=== PATIENT | female | born 1995 | race Caucasian/White ===

== ENCOUNTER 2019-09-21 12:06 | Emergency (ER) | payer OTHER, BC ==
[2019-09-21 12:12] VITALS: BP 119/75
[2019-09-21] MEDS ORDERED: IBUPROFEN 800 MG TABLET PO ONE (12:19)
[2019-09-21] MEDS ORDERED: CYCLOBENZAPRINE HCL 10 MG TABLET PO ONE (12:19)
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
== END 2019-09-21 13:52 | disposition home or self-care (01) ==
LOC: ER 12:06
DX: S60.811A Abrasion of right wrist, initial encounter (principal); M54.6 Pain in thoracic spine; M79.10 Myalgia, unspecified site; V43.53XA Car driver injured in collision with pick-up truck in traffic accident, initial encounter
CPT/HCPCS: 72070; 99283

== ENCOUNTER → 2019-10-03 | Outpatient (CLI) | payer BC ==
--- NOTE | 2019-10-03 14:35 | RADIOLOGY REPORT (SQ) ---
EXAM DESCRIPTION: WRIST RIGHT 3 VIEWS IMAGES COMPLETED DATE/TIME: 10/03/2019 2:19 pm REASON FOR STUDY: M25.531 PAIN IN RIGHT WRIST M25.531 PAIN IN RIGHT WRIST M25.511 PAIN IN RIGHT SH OULDER M25.551 PAIN IN RIGHT HIP COMPARISON: None. NUMBER OF VIEWS: Three views. TECHNIQUE: AP, lateral, and oblique radiographic images acquired of the right wrist. LIMITATIONS: None. FINDINGS: MINERALIZATION: Normal. BONES: No acute fracture or dislocation. No worrisome bone lesions. Normal alignment. SOFT TISSUES: No soft tissue swelling. No foreign body. OTHER: No other significant finding. IMPRESSION: NEGATIVE STUDY OF THE RIGHT WRIST. NO RADIOGRAPHIC EVIDENCE OF ACUTE INJURY. TECHNICAL DOCUMENTATION: JOB ID: [id number] 2010 [employer]- All Rights Reserved Reading location - IP/workstation name: [email or web address]
--- NOTE | 2019-10-03 14:44 | RADIOLOGY REPORT (SQ) ---
EXAM DESCRIPTION: SHOULDER RIGHT 2 OR MORE VIEWS IMAGES COMPLETED DATE/TIME: 10/03/2019 2:19 pm REASON FOR STUDY: M25.511 PAIN IN RIGHT SHOULDER M25.531 PAIN IN RIGHT WRIST M25.511 PAIN IN RIGHT SHOULDER M25.551 PAIN IN RIGHT HIP COMPARISON: None. NUMBER OF VIEWS: Three views. TECHNIQUE: Internal rotation, external rotation, and Y view images acquired of the right shoulder. LIMITATIONS: None. FINDINGS: MINERALIZATION: Normal. BONES: No acute fracture. No worrisome bone lesions. JOINTS: No dislocation. VISUALIZED LUNGS AND RIBS: No pneumothorax. No rib fracture. SOFT TISSUES: No radiopaque foreign body. OTHER: No other significant finding. IMPRESSION: NEGATIVE STUDY OF THE RIGHT SHOULDER. NO RADIOGRAPHIC EVIDENCE OF ACUTE INJURY. TECHNICAL DOCUMENTATION: JOB ID: [id number] 2010 [employer]- All Rights Reserved Reading location - IP/workstation name: [email or web address]
--- NOTE | 2019-10-03 14:58 | RADIOLOGY REPORT (SQ) ---
EXAM DESCRIPTION: HIP RIGHT AP/LATERAL IMAGES COMPLETED DATE/TIME: 10/03/2019 2:19 pm REASON FOR STUDY: M25.551 PAIN IN RIGHT HIP M25.531 PAIN IN RIGHT WRIST M25.511 PAIN IN RIGHT SHOU LDER M25.551 PAIN IN RIGHT HIP COMPARISON: None. NUMBER OF VIEWS: Two views. TECHNIQUE: AP pelvis and additional frog-leg view of the right hip. LIMITATIONS: None. FINDINGS: MINERALIZATION: Normal. RIGHT HIP: No fracture or dislocation. No worrisome bone lesions. No contour deformity. No joint sp claire narrowing. LEFT HIP: No fracture or dislocation. No worrisome bone lesions. PUBIS AND ISCHIUM: No fracture. PELVIS: No fracture. SACRUM: No fracture or dislocation. No worrisome bone lesions. LOWER LUMBAR SPINE: No fracture or dislocation. No worrisome bone lesions. No significant disc disea se. SOFT TISSUES: No findings. OTHER: No other significant finding. IMPRESSION: NEGATIVE STUDY OF THE RIGHT HIP. NO EXPLANATION FOR PAIN. TECHNICAL DOCUMENTATION: JOB ID: [id number] [employer]- All Rights Reserved Reading location - IP/workstation name: [email or web address]
== END ==
LOC: RAD 13:24
PROVIDERS: ATTEND Family Medicine
DX: M25.531 Pain in right wrist (principal); M25.511 Pain in right shoulder; M25.551 Pain in right hip

== ENCOUNTER → 2019-10-26 | Outpatient (CLI) | payer BC ==
--- NOTE | 2019-10-26 10:45 | RADIOLOGY REPORT (SQ) ---
EXAM DESCRIPTION: KNEE RIGHT 3 VIEWS IMAGES COMPLETED DATE/TIME: 10/26/2019 9:38 am REASON FOR STUDY: S89.91XA UNSPECIFIED INJURY OF RIGHT LOWER LEG, INITIAL ENCOUNTER S89.91XA UNSPEC IFIED INJURY OF RIGHT LOWER LEG, INITIAL ENCO COMPARISON: None. NUMBER OF VIEWS: Four views. TECHNIQUE: AP, lateral, oblique, and sunrise patella radiographic images acquired of the right knee. LIMITATIONS: None. FINDINGS: MINERALIZATION: Normal. BONES: No acute fracture or dislocation. JOINT: No effusion. SOFT TISSUES: No soft tissue swelling or radiopaque foreign body. OTHER: No other finding. IMPRESSION: No acute osseous abnormality of the right knee. TECHNICAL DOCUMENTATION: JOB ID: [id number] 2010 [employer]- All Rights Reserved Reading location - IP/workstation name: [email or web address]
== END ==
LOC: RAD 08:59
PROVIDERS: ATTEND Family Medicine
DX: S89.91XA Unspecified injury of right lower leg, initial encounter (principal); X58.XXXA Exposure to other specified factors, initial encounter

== ENCOUNTER → 2020-03-26 | Outpatient (CLI) | payer BC ==
--- NOTE | 2020-03-26 11:34 | RADIOLOGY REPORT (SQ) ---
EXAM DESCRIPTION: HIP RIGHT AP/LATERAL IMAGES COMPLETED DATE/TIME: 03/26/2020 11:07 am REASON FOR STUDY: R HIP PAIN M25.551 PAIN IN RIGHT HIP COMPARISON: 10/03/2019 NUMBER OF VIEWS: Two views. TECHNIQUE: AP and frog-leg view of the right hip. LIMITATIONS: None. FINDINGS: MINERALIZATION: Normal. RIGHT HIP: No fracture or dislocation. No worrisome bone lesions. No contour deformity. No joint sp claire narrowing. OPPOSITE HIP: No fracture or dislocation. No worrisome bone lesions. SOFT TISSUES: No findings. OTHER: No other significant finding. IMPRESSION: NEGATIVE STUDY OF THE RIGHT HIP. NO EXPLANATION FOR PAIN. TECHNICAL DOCUMENTATION: JOB ID: [id number] 2010 [employer]- All Rights Reserved Reading location - IP/workstation name: [email or web address]
== END ==
LOC: RAD 10:47
PROVIDERS: ATTEND Family Medicine
DX: M25.551 Pain in right hip (principal)

== ENCOUNTER 2020-04-30 21:15 | Emergency (ER) | payer BC ==
--- NOTE | 2020-04-30 22:00 | ER Document Report ---
ED Medical Screen (RME) - General Chief Complaint: Chest Pain Stated Complaint: CHEST PAIN / SHORTNESS OF BREATH Time Seen by Provider: 04/30/20 21:42 Primary Care Provider: CEZAR RICHEY MD [Primary Care Provider] - Follow up as needed - [facility] Notes: 04/30/20 21:58 24-year-old female with past medical history for anxiety and asthma to the emergency department with complaints of chest pain that began yesterday and then has progressively worse today. It does not get worse with a deep breath. She states it does feel stabbing in nature. Tonight it got significantly worse and she had associated shortness of breath with it. She also felt dizzy with lightheadedness. She states that she had Covid at the end of January. She has not had any other symptoms such as cough, fevers, nausea, vomiting, diarrhea. Brief medical screening exam, patient has clear lungs on auscultation and she is nontender to palpation over the chest wall. She is on control. She has been taking Tri-Sprintec for several years. She denies any recent travel or leg swelling. She is never had a DVT or PE. She vapes socially but otherwise does not smoke. I performed a brief medical screening exam on the patient determined that the patient needs further evaluation and management by main side provider. I have placed initial orders to help expedite care. 04/30/20 21:59 - Related Data Allergies/Adverse Reactions: cefaclor [From Ceclor] Allergy (Verified 09/21/19 12:11) Hives Past Medical History Pulmonary Medical History: Reports: Hx Asthma Past Surgical History: Reports: Hx Oral Surgery - Immunizations Hx Diphtheria, Pertussis, Tetanus Vaccination: Yes Physical Exam - Vital signs Vitals: Temp Pulse Resp BP Pulse Ox 97.6 F 80 24 H 149/70 H 100 04/30/20 21:29 04/30/20 21:29 04/30/20 21:29 04/30/20 21:29 04/30/20 21:29 Course - Vital Signs Vital signs: Temp Pulse Resp BP Pulse Ox 97.6 F 80 24 H 149/70 H 100 04/30/20 21:29 04/30/20 21:29 04/30/20 21:29 04/30/20 21:29 04/30/20 21:29 Doctor's Discharge - Discharge Referrals: CEZAR RICHEY MD [Primary Care Provider] - Follow up as needed
[2020-04-30 22:23] LABS: ABSOLUTE EOSINOPHILS # (AUTO) 0.1 10^3/uL (0.0-0.6); ABSOLUTE LYMPHOCYTES (AUTO) 3.9 10^3/uL (0.5-4.7); ABSOLUTE MONOCYTES (AUTO) 0.6 10^3/uL (0.1-1.4); ABSOLUTE NEUT (AUTO) 6.3 10^3/uL (1.7-8.2); BASOPHILS % (AUTO) 0.4 % (0-2); EOSINOPHILS % (AUTO) 0.7 % (0-6); HEMOGLOBIN 12.6 g/dL (12.0-15.5); LYMPHOCYTES % (AUTO) 35.8 % (13-45); MEAN CORPUSCULAR HEMOGLOBIN 28.7 pg (27.0-33.4); MEAN CORPUSCULAR HGB CONC 33.1 g/dL (32.0-36.0); MEAN CORPUSCULAR VOLUME 87 fl (80-97); MONOCYTES % (AUTO) 5.2 % (3-13); PLATELET COUNT 301 10^3/uL (150-450); RED BLOOD COUNT 4.39 10^6/uL (3.72-5.28); RED CELL DISTRIBUTION WIDTH 13.4 % (11.5-14.0); SEGMENTED NEUTROPHILS % (AUTO) 57.9 % (42-78); TOTAL CELLS COUNTED % (AUTO) 100 %; WHITE BLOOD COUNT 10.8 10^3/uL (4.0-10.5)
[2020-04-30 22:42] LABS: ALBUMIN 4.1 g/dL (3.5-5.0); ALKALINE PHOSPHATASE 42 U/L (38-126); ASPARTATE AMINO TRANSFERASE 22 U/L (14-36); BILIRUBIN,DIRECT 0.1 mg/dL (0.0-0.4); BILIRUBIN,TOTAL 0.4 mg/dL (0.2-1.3); BLOOD UREA NITROGEN 12 mg/dL (7-20); CALCIUM 9.6 mg/dL (8.4-10.2); CHLORIDE 103 mmol/L (98-107); GLUCOSE 94 mg/dL (75-110)
[2020-04-30 22:50] LABS: ANION GAP 6 (5-19); CARBON DIOXIDE 27 mmol/L (22-30); POTASSIUM 3.8 mmol/L (3.6-5.0)
[2020-04-30] MEDS ORDERED: IBUPROFEN 800 MG TABLET PO ONE (22:51)
--- NOTE | 2020-04-30 22:52 | ER Document Report ---
ED Cardiac - General Chief Complaint: Chest Pain Stated Complaint: CHEST PAIN / SHORTNESS OF BREATH Time Seen by Provider: 04/30/20 21:42 Primary Care Provider: CEZAR RICHEY MD [Primary Care Provider] - Follow up as needed MANDI LIPSCOMB MD [ACTIVE STAFF] - Follow up as needed Mode of Arrival: Ambulatory Information source: Patient Notes: Patient presents complaining of chest pain for the past week. Patient does complain of some dizziness or shortness of breath. Patient was diagnosed with Covid in January of this year. Patient does report increased stress that may be contributing to her symptoms. 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 Patient reports some nausea without vomiting. Patient denies any cough. - HPI Patient complains to provider of: Chest pain, Shortness of breath Quality of pain: Sharp, Tightness Pain level currently: 3 Associated symptoms: Anxiety, Shortness of breath. 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 denies: Fever EENT: No symptoms reported Cardiovascular: Chest pain Respiratory: Short of breath. denies: Cough Gastrointestinal: No symptoms reported. denies: Abdominal pain, Nausea, Vomiting Genitourinary: No symptoms reported Female Genitourinary: No symptoms reported Musculoskeletal: No symptoms reported. denies: Back pain, Muscle pain Skin: No symptoms reported Hematologic/Lymphatic: No symptoms reported Neurological/Psychological: No symptoms reported Physical Exam - Vital signs Vitals: Temp Pulse Resp BP Pulse Ox 97.6 F 80 24 H 149/70 H 100 04/30/20 21:29 04/30/20 21:29 04/30/20 21:29 04/30/20 21:29 04/30/20 21:29 - General General appearance: Appears well, Alert In distress: None - HEENT Head: Normocephalic, Atraumatic Eyes: Normal Conjunctiva: Normal Nasal: Normal Mouth/Lips: Normal Neck: Normal, Supple. No: Lymphadenopathy - Respiratory Respiratory status: No respiratory distress Chest status: Tender, Pain with deep breathing Breath sounds: Normal Chest palpation: Normal - Cardiovascular Rhythm: Regular. No: Tachycardia Heart sounds: S1 appreciated, S2 appreciated Murmur: No - Abdominal Inspection: Normal Distension: No distension Bowel sounds: Normal Tenderness: Nontender Organomegaly: No organomegaly - Back Back: Normal, Nontender. No: CVA tenderness - Extremities General upper extremity: Normal inspection, Normal ROM General lower extremity: Normal inspection, Normal ROM - Neurological Neuro grossly intact: Yes Cognition: Normal Theodore Coma Scale Eye Opening: Spontaneous [place] Coma Scale Verbal: Oriented Theodore Coma Scale Motor: Obeys Commands [place] Coma Scale Total: 15 - Psychological Associated symptoms: Normal affect, Normal mood - Skin Skin Temperature: Warm Skin Moisture: Dry Skin Color: Normal Course - Re-evaluation Re-evalutation: 05/01/20 00:38 Patient with right anterior chest tenderness worse with deep inspiration. 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 Discussed with patient that she could have a chest wall injury causing her pain symptoms. Patient's EKG with a sinus arrhythmia without any acute ischemic changes. No elevation in D-dimer, patient without any tachycardia or hypoxia. Presentation of chest pain in an otherwise well appearing patient. Low clinical suspicion for ACS given clinical history, exam, EKG without ST elevations or depressions, and negative initial troponin. HEART score less than or equal to 3. PE also seems unlikely given clinical history, absence of tachycardia or dyspnea. CXR without evidence of pneumothorax or pneumonia. No widened mediastinum. Chest pain in a patient without evidence of cardiac or other serious etiology on workup today. I discussed with patient that, based on their age, risk factors and emergency department testing today, the likelihood that their symptoms are related to a heart attack is very low. The patient demonstrates decision making capacity and has verbalized an understanding of these risks to me. Based on this, the patient has chosen to follow-up as an outpatient. Usual chest pain return precautions reviewed. The patient states understanding and agreement with this plan. 05/01/20 00:40 - Vital Signs Vital signs: Temp Pulse Resp BP Pulse Ox 97.9 F 80 19 123/56 L 100 05/01/20 00:51 04/30/20 21:29 05/01/20 00:51 05/01/20 00:51 05/01/20 00:51 - Laboratory Result Diagrams: 04/30/20 22:02 04/30/20 22:02 Laboratory results interpreted by me: 04/30/20 04/30/20 22:02 22:02 WBC 10.8 H Sodium 136.2 L 05/01/20 00:38 Labs- All tests 24 hr 04/30/20 04/30/20 04/30/20 22:02 22:02 22:02 WBC 10.8 H RBC 4.39 Hgb 12.6 Hct 38.0 MCV 87 MCH 28.7 MCHC 33.1 RDW 13.4 Plt Count 301 Lymph % (Auto) 35.8 Emanuel % (Auto) 5.2 Eos % (Auto) 0.7 Baso % (Auto) 0.4 Absolute Neuts (auto) 6.3 Absolute Lymphs (auto) 3.9 Absolute Monos (auto) 0.6 Absolute Eos (auto) 0.1 Absolute Basos (auto) 0.0 Seg Neutrophils % 57.9 D-Dimer Sodium 136.2 L Potassium 3.8 Chloride 103 Carbon Dioxide 27 Anion Gap 6 BUN 12 Creatinine 0.73 Est GFR ( Amer) > 60 Est GFR (MDRD) Non-Af > 60 Glucose 94 Calcium 9.6 Total Bilirubin 0.4 Direct Bilirubin 0.1 Neonat Total Bilirubin Not Reportable Neonat Direct Bilirubin Not Reportable Neonat Indirect Bili Not Reportable AST 22 ALT 15 Alkaline Phosphatase 42 Troponin I < 0.012 Total Protein 7.0 Albumin 4.1 TSH 04/30/20 04/30/20 04/30/20 22:02 22:02 23:12 WBC RBC Hgb Hct MCV MCH MCHC RDW Plt Count Lymph % (Auto) Emanuel % (Auto) Eos % (Auto) Baso % (Auto) Absolute Neuts (auto) Absolute Lymphs (auto) Absolute Monos (auto) Absolute Eos (auto) Absolute Basos (auto) Seg Neutrophils % D-Dimer Cancelled < 0.27 Sodium Potassium Chloride Carbon Dioxide Anion Gap BUN Creatinine Est GFR ( Amer) Est GFR (MDRD) Non-Af Glucose Calcium Total Bilirubin Direct Bilirubin Neonat Total Bilirubin Neonat Direct Bilirubin Neonat Indirect Bili AST ALT Alkaline Phosphatase Troponin I Total Protein Albumin TSH 4.37 - Diagnostic Test Radiology reviewed: Reports reviewed - EKG Interpretation by Me EKG shows normal: Sinus rhythm Rhythm: Arrthymia When compared to previous EKG there are: Previous EKG unavailable Additional EKG results interpreted by me: 05/01/20 00:38 Sinus arrhythmia, rate of 84, QTc 426, no acute ischemic changes no prior EKG available for comparison Discharge - Discharge Clinical Impression: Chest pain Qualifiers: Chest pain type: unspecified Qualified Code(s): R07.9 - Chest pain, unspecified Condition: Stable Disposition: HOME, SELF-CARE Instructions: Chest Pain of Unclear Cause ([facility]), Muscle Relaxers ([facility]) Additional Instructions: Return immediately for any new or worsening symptoms Followup with your primary care provider, call tomorrow to make a followup appointment Follow-up with cardiology for further evaluation, call tomorrow for an appointment Prescriptions: Naproxen [Naprosyn 250 Nmg Tablet] 1 tab PO BID #14 tablet Methocarbamol [Robaxin 500 Mg Tablet] 500 mg PO QID PRN #24 tablet PRN Reason: Forms: Return to Work Referrals: CEZAR RICHEY MD [Primary Care Provider] - Follow up as needed MANDI LIPSCOMB MD [ACTIVE STAFF] - Follow up as needed
--- NOTE | 2020-04-30 22:59 | RADIOLOGY REPORT (SQ) ---
EXAM DESCRIPTION: X-RAY CHEST- One View CLINICAL HISTORY: Chest pain and shortness of breath COMPARISON: None available. TECHNIQUE: Single view of the chest. FINDINGS: There are no discrete air space infiltrates, pneumothoraces or pleural effusions. The pulmonary vascularity is normal. The cardiomediastinal silhouette is normal in size. No suspicious lytic or blastic osseous lesions are identified. IMPRESSION: There are no acute lung parenchymal findings.
[2020-05-01 01:03] VITALS: BP 123/56
--- NOTE | 2020-05-01 17:44 | EKG REPORT ---
SEVERITY:- OTHERWISE NORMAL ECG - SINUS ARRHYTHMIA, RATE 62-95 : Confirmed by: Johnnie Franco MD 01-May-2020 17:43:43
== END 2020-05-01 01:00 | disposition home or self-care (01) ==
LOC: ER 21:15
DX: R07.89 Other chest pain (principal); R07.1 Chest pain on breathing; F41.9 Anxiety disorder, unspecified; J45.909 Unspecified asthma, uncomplicated; R11.0 Nausea; R06.02 Shortness of breath; I49.9 Cardiac arrhythmia, unspecified; F17.200 Nicotine dependence, unspecified, uncomplicated; Z79.899 Other long term (current) drug therapy; Z88.1 Allergy status to other antibiotic agents
CPT/HCPCS: 36415; 71046; 80053; 84443; 84484; 85025; 85379; 93005; 93010; 99285